=== PATIENT | male | born 1995 | race Caucasian/White ===

== ENCOUNTER 2016-10-01 10:36 | Emergency (ER) | payer OTHER ==
[~2016-10-01] VITALS: Ht 188 cm; Wt 99.8 kg
[2016-10-01] MEDS ORDERED: CLAR10CA3 PO (10:47)
[2016-10-01] MEDS ORDERED: ALBUTEROL 90 MCG/ACT 8GM HFA INHALER As Ordered ONE (12:03)
[2016-10-01] MEDS ORDERED: ALBUTEROL 90 MCG/ACT 8GM HFA INHALER INH ONE (12:15)
[2016-10-01] MEDS ORDERED: GUAISYP4 PO (12:36)
[2016-10-01] MEDS ORDERED: PRED20TA PO (12:36)
--- NOTE | 2016-10-01 12:39 | REP ---
CHEST: Two views. There is no evidence of acute infiltrate. No pleural effusion is seen. The heart is normal in size. The mediastinal silhouette is unremarkable. The visualized osseous structures are intact. IMPRESSION: No acute pulmonary disease. Signed by Stefan Alaniz MD 10/01/2016 05:25 P
[2016-10-01 12:40] VITALS: BP 161/71
== END 2016-10-01 12:45 | disposition home or self-care (01) ==
LOC: M ED 11:54
DX: J20.9 Acute bronchitis, unspecified (principal); Z79.899 Other long term (current) drug therapy

== ENCOUNTER 2017-06-12 19:04 | Emergency (ER) | payer OTHER ==
[2017-06-12] MEDS: AZITHROMYCIN 250 MG TAB PO (21:00)
== END 2017-06-12 22:02 | disposition home or self-care (01) ==
LOC: M ED 19:04
DX: J45.901 Unspecified asthma with (acute) exacerbation (principal); J20.9 Acute bronchitis, unspecified; F17.210 Nicotine dependence, cigarettes, uncomplicated
CPT/HCPCS: 99283